=== PATIENT | male | born 1950 | race African-American/Black ===

== ENCOUNTER → 2019-10-22 | Outpatient (CLI) | payer OTHER ==
--- NOTE | 2019-10-22 13:31 | 2DMMODE ---
[facility] [employer] [place] [address] 2 D/M-MODE ECHOCARDIOGRAM Name: VANI FERRIS Room #: REG CEFERINO LuisSaulMarisaSaul#: [id number] Admission: 10/22/19 Attend Phys: Trae Pichardo MD Discharge: Date of : 54 Report #: [id number] THIS REPORT FOR: cc: FAM - Family physician unknown FAM - Family physician unknown Shlomo Magaña MD ~ APPROVED REPORT Study performed: 10/22/2019 11:52:31 EXAM: Comprehensive 2D, Doppler, and color-flow Echocardiogram Patient Location: Out-Patient Room #: Echo lab 2 Status: routine BSA: 2.44 HR: 61 bpm BP: 128/76 mmHg Rhythm: NSR Other Information Study Quality: Good Indications Diabetes CAD Hypertension/HDD 2D Dimensions RVDd: 43.32 mm IVSd: 11.29 (7-11mm) LVOT Diam: 22.37 (18-24mm) LVDd: 48.79 mm PWd: 10.91 (7-11mm) Ascending Ao: 39.01 (22-36mm) LVDs: 37.03 (25-40mm) Aortic Root: 34.52 mm Volumes Left Atrial Volume (Systole) Single Plane 4CH: 64.79 mL Single Plane 2CH: 48.70 mL LA ESV Index: 26.00 mL/m2 Aortic Valve AoV Peak Rajiv.: 1.67 m/s AO Peak Gr.: 11.14 mmHg LVOT Max P.67 mmHg LVOT Max V: 0.96 m/s [facility] [place] [address] 2 D/M-MODE ECHOCARDIOGRAM Name: BARRINGTONVANI Room #: REG [facility]#: [id number] Admission: 10/22/19 Attend Phys: Trae Pichardo MD Discharge: Date of : 54 Report #: [id number] [id number] Vmax: 2.25 cm2 Mitral Valve E/A Ratio: 1.0 MV Decel. Time: 230.93 ms MV E Max Rajiv.: 0.85 m/s MV A Rajiv.: 0.82 m/s MV PHT: 66.97 ms IVRT: 152.25 ms Pulmonary Valve PV Peak Rajiv.: 1.30 m/s PV Peak Gr.: 6.80 mmHg Pulmonary Vein P Vein S: 0.59 m/s P Vein A: 0.22 m/s P Vein D: 0.29 m/s P Vein A Dur.: 110.7 msec P Vein S/D Ratio: 2.03 Left Ventricle The left ventricle is normal size. There is normal LV segmental wall motion. There is normal left ventricular wall thickness. Left ventricular systolic function is normal. The left ventricular ejection fraction is within the normal range. LVEF is 55-60%. Grade II - pseudonormal filling dynamics. Right Ventricle The right ventricle is normal size. The right ventricular systolic function is normal. Atria The left atrium size is normal. The right atrium size is normal. Aortic Valve The aortic valve is normal in structure. No aortic regurgitation is present. There is no aortic valvular stenosis. Mitral Valve The mitral valve is normal in structure. There is no mitral valve regurgitation noted. No evidence of mitral valve stenosis. Tricuspid Valve The tricuspid valve is normal in structure. There is no tricuspid valve regurgitation noted. Pulmonic Valve [address] [address] 2 D/M-MODE ECHOCARDIOGRAM Name: BARRINGTONVANI [id number] Admission: 10/22/19 Attend Phys: Trae Pichardo MD Discharge: Date of : 54 Report #: [id number] The pulmonary valve is normal in structure. There is no pulmonic valvular regurgitation. Great Vessels The aortic root is normal in size. The inferior vena cava is not well visualized. Pericardium There is no pericardial effusion. <Conclusion> The left ventricle is normal size. LVEF is 55-60%. The aortic valve is normal in structure. The mitral valve is normal in structure. The tricuspid valve is normal in structure. The pulmonary valve is normal in structure. There is no pericardial effusion. <ELECTRONICALLY SIGNED> By: Shlomo Magaña MD 10/22/19 1331 30 30 Shlomo Magaña MD /INF
== END ==
LOC: CV 11:52
PROVIDERS: ATTEND Orthopaedic Surgery
DX: I25.10 Atherosclerotic heart disease of native coronary artery without angina pectoris (principal); I10 Essential (primary) hypertension; E11.9 Type 2 diabetes mellitus without complications